=== PATIENT | female | born 1985 | race Caucasian/White ===

== ENCOUNTER 2025-04-19 19:45 | Emergency (ER) | payer MEDICAID ==
[~2025-04-19] VITALS: Ht 152.4 cm; Wt 74.0 kg
[2025-04-19 19:57] VITALS: O2SAT 96
[2025-04-19 20:32] LABS: BASOPHILS % 0.9 % (0.0-2.0); EOSINOPHILS % 0.6 % (0.0-5.0); HEMATOCRIT. 41.1 % (36.0-48.0); HEMOGLOBIN. 13.8 g/dL (12.0-16.0); LYMPHOCYTES % 28.9 % (20.0-50.0); MEAN PLATELET VOLUME 8.4 fl (7.4-10.4); MONOCYTES % 6.1 % (2.0-8.0); NEUTROPHILS % 63.5 % (40.0-76.0); PLATELET 298 x1000/uL (130-400); RED BLOOD CELL COUNT 4.33 mill/uL (4.2-5.4); RED CELL DISTRIBUTION WIDTH 14.7 % (11.6-14.6)
[2025-04-19] MEDS: ACETAMINOPHEN 325MG TABLET PO ONE (20:40)
[2025-04-19 20:43] LABS: HCG SCREEN NEGATIVE; INR 1.0
[2025-04-19 20:45] LABS: CREATININE 0.7 mg/dL (0.6-1.0)
[2025-04-19 20:46] LABS: TROPONIN I HIGH SENSITIVITY < 4 ng/L (3.0-34); UREA NITROGEN BLOOD 9 mg/dL (9-23)
[2025-04-19 21:39] VITALS: BP 142/95; PULSE 63; RESP 16; TEMP 36.6; O2SAT 100
== END 2025-04-19 21:45 | disposition home or self-care (01) ==
LOC: ER 19:45
DX: R07.89 Other chest pain (principal); R06.02 Shortness of breath
CPT/HCPCS: 36415; 71045; 80048; 81025; 84484; 84703; 85025; 85379; 93005; 99285